=== PATIENT | female | born 1965 | race Caucasian/White ===

== ENCOUNTER 2024-09-05 08:18 | Outpatient (CLI) | payer OTHER ==
[2024-09-05] MEDS ORDERED: Iopamidol 370 76% 100 ML VIAL ONE (09:21)
== END 2024-09-05 08:19 | disposition home or self-care (01) ==
LOC: CT 08:18
PROVIDERS: ATTEND Internal Medicine Hematology & Oncology
DX: C50.111 Malignant neoplasm of central portion of right female breast (principal); L98.8 Other specified disorders of the skin and subcutaneous tissue; N28.9 Disorder of kidney and ureter, unspecified; M47.812 Spondylosis without myelopathy or radiculopathy, cervical region
CPT/HCPCS: 71260; 74177; 78306; A9503; Q9967

== ENCOUNTER 2024-09-18 06:21 | Day surgery (SDC) | payer OTHER ==
[2024-09-15 12:18] VITALS: BMI 20.6
[2024-09-18] MEDS ORDERED: Gentamicin 80 MG/2 ML VIAL ONE (06:48)
[2024-09-18] MEDS ORDERED: EPINEPHrine 1 MG/ML VIAL ONE (06:48)
[2024-09-18] MEDS ORDERED: Bupivacaine 0.25% HCL 30 ML VIAL ONE (06:49)
[2024-09-18] MEDS ORDERED: Vancomycin 1 GM VIAL ONE (06:49)
[2024-09-18] MEDS ORDERED: CEFAZOLIN 2 GM VIAL ONE (06:52)
[2024-09-18] MEDS ORDERED: Heparin 5,000 UNITS/ML VIAL ONE (06:52)
[2024-09-18] MEDS ORDERED: Dexamethasone 20 MG/5 ML VIAL ONE (06:53)
[2024-09-18] MEDS ORDERED: Rocuronium Bromide 10 MG/ML (10ML VIAL) ONE (06:53)
[2024-09-18] MEDS ORDERED: Midazolam HCl 2 mg/2 ml Vial ONE (06:53)
[2024-09-18] MEDS ORDERED: Glycopyrrolate 0.2 MG/ML 5 ML SYRINGE ONE (06:53)
[2024-09-18] MEDS ORDERED: PROPOFOL 20 ML ONE (06:53)
[2024-09-18] MEDS ORDERED: fentaNYL PF 100 MCG/2 ML SYRINGE ONE ×3 (06:53→11:27)
[2024-09-18] MEDS ORDERED: Ondansetron PF 4 MG/2 ML Vial ONE (06:53)
[2024-09-18] MEDS ORDERED: Lidocaine 1% PF 5 ML VIAL ONE (06:53)
[2024-09-18] MEDS ORDERED: PHENYLEPHRINE-NS 100 MCG/ML 10 ML SYRINGE ONE ×2 (06:53→10:52)
[2024-09-18] MEDS ORDERED: Isosulfan Blue 50 MG/5 ML VIAL ONE (07:00)
[2024-09-18] MEDS ORDERED: Scopolamine 1 mg/72 hour Patch ONE (07:23)
[2024-09-18] MEDS ORDERED: ePHEDrine Sulfate 50 MG/10 ML VIAL ONE (07:54)
[2024-09-18] MEDS ORDERED: Tranexamic Acid 1,000 MG/10 ML VIAL ONE (08:37)
[2024-09-18] MEDS ORDERED: fentaNYL 50 mcg/mL 1 mL Vial ONE ×3 (08:43→11:23)
[2024-09-18] MEDS ORDERED: HYDROmorphone 0.5 MG/0.5 ML SYRINGE ONE (11:31)
[2024-09-18] MEDS ORDERED: oxyCODONE 5 MG TAB ONE (13:40)
== END 2024-09-18 14:35 | disposition home or self-care (01) ==
LOC: CANPRESDC → SDC 06:21
PROVIDERS: ATTEND Plastic Surgery
PROC: 07T Lymphatic and Hemic Systems, Resection (ICD-10-PCS; principal; 2024-09-18)
DX: C77.3 Secondary and unspecified malignant neoplasm of axilla and upper limb lymph nodes (principal); C50.911 Malignant neoplasm of unspecified site of right female breast; I10 Essential (primary) hypertension; F17.200 Nicotine dependence, unspecified, uncomplicated; Z88.5 Allergy status to narcotic agent; Z79.899 Other long term (current) drug therapy; Z98.890 Other specified postprocedural states; Z90.710 Acquired absence of both cervix and uterus
CPT/HCPCS: 88305; 88307; 88342; C1713; J0171; J0665; J1100; J1580; J1644; J2250; J2405; J2704; J3010; J3370; Q9968

== ENCOUNTER → 2024-11-01 | Day surgery (SDC) | payer OTHER ==
[2024-10-31 12:57] VITALS: BMI 21.1
[~2024-11-01] MED LIST: Bupivacaine 0.25% HCL 30 ML VIAL ONE; Dexamethasone 4 mg/ml Vial ONE; EPINEPHrine 1 MG/ML VIAL ONE; Gentamicin 80 MG/2 ML VIAL ONE; Glycopyrrolate 0.2 MG/ML 5 ML SYRINGE ONE; HYDROcodone/Acetaminophen 5/325 mg Tablet ONE; Heparin 5,000 UNITS/ML VIAL ONE; Lidocaine 2% 6 ML (Jelly) SYR ONE; Lidocaine 2% PF 5 ML VIAL ONE; Meperidine HCl/PF 25 MG (1 mL) VIAL ONE; Midazolam HCl 2 mg/2 ml Vial ONE; Morphine 4 MG/ML VIAL ONE; Ondansetron PF 4 MG/2 ML Vial ONE; PROPOFOL 20 ML ONE; Sodium Chloride 0.9% 250 ML 250 ML ONE; Vancomycin 1 GM VIAL ONE; ePHEDrine Sulfate 50 MG/10 ML VIAL ONE; fentaNYL 50 mcg/mL 1 mL Vial ONE; fentaNYL PF 100 MCG/2 ML SYRINGE ONE
[2024-11-01 15:55] LABS: Anion Gap 15 mmol/L (10-20); BUN (Urea Nitrogen) 9 mg/dL (9.8-20.1); Calc. Creatinine Clearance 93 mL/min (70-130); Calcium 9.1 mg/dL (7.8-10.44); Carbon Dioxide 25 mmol/L (22-29); Chloride 105 mmol/L (98-107); Estimated GFR 103; Glucose 76 mg/dL (70-105); Potassium 3.6 mmol/L (3.5-5.1); Sodium 141 mmol/L (136-145)
== END ==
LOC: SDC 13:49
PROVIDERS: ATTEND Plastic Surgery
DX: T85.49XA Other mechanical complication of breast prosthesis and implant, initial encounter (principal); C50.911 Malignant neoplasm of unspecified site of right female breast; F41.9 Anxiety disorder, unspecified; I10 Essential (primary) hypertension; E78.5 Hyperlipidemia, unspecified; E03.9 Hypothyroidism, unspecified
CPT/HCPCS: 80048; J0171; J0665; J1100; J1580; J1644; J2175; J2250; J2272; J2405; J2704; J3010; J3370; J7050

== ENCOUNTER 2025-07-18 07:54 | Outpatient (CLI) | payer OTHER | END 2025-07-18 07:55 | disposition home or self-care (01) | LOC: BICMAMMO 07:54 | PROVIDERS: ATTEND Internal Medicine Hematology & Oncology | DX: C50.111 Malignant neoplasm of central portion of right female breast (principal); M85.851 Other specified disorders of bone density and structure, right thigh; M85.852 Other specified disorders of bone density and structure, left thigh | CPT/HCPCS: 77080 ==